=== PATIENT | female | born 1990 | race American Indian/Alaskan Native ===

== ENCOUNTER 2018-05-18 19:46 | Emergency (ER) | payer MEDICAID ==
[2018-05-18 21:13] VITALS: BP 112/58
[2018-05-18 21:47] LABS: Bacteria,Urine 1+ /HPF (Negative); Bilirubin,Urine NEG (Negative); Blood,Urine NEG (Negative); Color,Urine Yellow (Yellow); HCG Qualitative,Urine Negative (Negative); Mucus,Urine FEW /HPF; Protein,Urine <15 mg/dL mg/dL (Negative)
[2018-05-18] MEDS ORDERED: MACROBID PO ONE (22:00)
--- NOTE | 2018-05-18 22:32 | Emergency Department Report ---
ED Female HPI - General Chief complaint: Urogenital-Female Stated complaint: POSSIBLE UTI Time Seen by Provider: 05/18/18 21:33 Source: patient Mode of arrival: Ambulatory Limitations: No Limitations - History of Present Illness Initial comments: Ms Albarado is a 28 year-old woman without PMH who presents with pain with urination. Dysuria and urgency for 1 week. No fever. Some lower abdominal pain. LMP 3 weeks ago. No vaginal dc. Normal PO, normal stools. No recent abx. Feels like previous UTI -: Gradual Radiation: non-radiating Severity: mild Quality: burning Worsens with: urination - Related Data Allergies Allergy/AdvReac Type Severity Reaction Status Date / Time No Known Allergies Allergy Unverified 05/18/18 20:28 ED Review of Systems ROS: Stated complaint: POSSIBLE UTI Other details as noted in HPI Constitutional: no symptoms reported ENT: denies: throat pain, congestion Respiratory: denies: cough, shortness of breath Cardiovascular: denies: chest pain, palpitations Gastrointestinal: abdominal pain. denies: nausea, vomiting Genitourinary: urgency, dysuria, frequency. denies: hematuria, discharge, abnormal menses Musculoskeletal: denies: back pain Skin: denies: rash Neurological: denies: headache, weakness ED Past Medical Hx - Past Medical History Previous Medical History?: No - Surgical History Past Surgical History?: Yes Additional Surgical History: Csecton x 5 - Social History Smoking Status: Never Smoker ED Physical Exam - General Limitations: No Limitations General appearance: alert, in no apparent distress - Head Head exam: Present: atraumatic, normocephalic - Eye Eye exam: Present: normal appearance - ENT ENT exam: Present: mucous membranes moist - Neck Neck exam: Present: normal inspection - Respiratory Respiratory exam: Present: normal lung sounds bilaterally. Absent: respiratory distress, wheezes, rales - Cardiovascular Cardiovascular Exam: Present: regular rate, normal rhythm. Absent: systolic murmur, diastolic murmur, rubs, gallop - GI/Abdominal GI/Abdominal exam: Present: soft, other (mild suprapubic ttp). Absent: distended, guarding, rebound - Extremities Exam Extremities exam: Present: normal inspection - Back Exam Back exam: Present: normal inspection. Absent: CVA tenderness (R), CVA tenderness (L) - Neurological Exam Neurological exam: Present: alert, oriented X3 - Psychiatric Psychiatric exam: Present: normal affect, normal mood - Skin Skin exam: Present: warm, dry, intact, normal color. Absent: rash ED Course Vital Signs 05/18/18 05/18/18 05/18/18 19:49 20:30 21:11 Temperature 99.3 F 99.5 F 98.5 F Pulse Rate 104 H 100 H 78 Respiratory 18 18 16 Rate Blood Pressure 127/74 127/74 Blood Pressure 112/58 [Right] O2 Sat by Pulse 97 98 100 Oximetry ED Medical Decision Making - Lab Data Lab Results 05/18/18 Range/Units 21:24 Urine Color Yellow (Yellow) Urine Turbidity Clear (Clear) Urine pH 7.0 (5.0-7.0) Ur Specific [place] 1.025 (1.003-1.030) Urine Protein <15 mg/dl (Negative) mg/dL Urine Glucose (UA) Neg (Negative) mg/dL Urine Ketones Neg (Negative) mg/dL Urine Blood Neg (Negative) Urine Nitrite Neg (Negative) Urine Bilirubin Neg (Negative) Urine Urobilinogen 2.0 (<2.0) mg/dL Ur Leukocyte Esterase Lg (Negative) Urine WBC (Auto) 170.0 H (0.0-6.0) /HPF Urine RBC (Auto) 15.0 (0.0-6.0) /HPF U Epithel Cells (Auto) 4.0 (0-13.0) /HPF Urine Bacteria (Auto) 1+ (Negative) /HPF Urine Mucus Few /HPF Urine HCG, Qual Negative (Negative) - Medical Decision Making Ms Albarado is a 28 year-old woman who presents with dysuria. 1 week of symptoms. No fever. Normal PO. No flank pain. No vaginal complaints. Exam without CVA ttp. Only with mild suprapubic ttp. Pelvic deferred based on symptoms. Suspect UTI vs dysuria due to irritation. UA with evidence of UTI. No evidence of pyelo on exam. No . Starting on macrobid. DC to home with care instructions, return precautions. Critical care attestation.: If time is entered above; I have spent that time in minutes in the direct care of this critically ill patient, excluding procedure time. ED Disposition Clinical Impression: Urinary tract infection Qualifiers: Urinary tract infection type: acute cystitis Hematuria presence: without hematuria Qualified Code(s): N30.00 - Acute cystitis without hematuria Disposition: TO HOME OR SELFCARE Is pt being admited?: No Condition: Stable Instructions: Urinary Tract Infection in Women (ED) Referrals: PRIMARY CARE, [Primary Care Provider] - 3-5 Days
== END 2018-05-19 00:02 | disposition home or self-care (01) ==
LOC: ED 19:46
DX: N39.0 Urinary tract infection, site not specified (principal)
CPT/HCPCS: 81001; 81025; 87086; 87186; 99283